=== PATIENT | female | born 1980 | race Caucasian/White ===

== ENCOUNTER 2017-04-30 20:16 | Inpatient (IN) | payer MEDICAID ==
[2017-04-30] MEDS ORDERED: Water For Irrigation,Sterile 1,000 ML Container IRR PRN (20:51)
[2017-04-30] MEDS ORDERED: Nalbuphine 10 MG/1 ML Vial IVPUSH PRN (20:51)
[2017-04-30] MEDS ORDERED: Methylergonovine 0.2 MG/1 ML Amp IM PRN (20:51)
[2017-04-30] MEDS ORDERED: Butorphanol 1 MG/ML SDV IVPUSH PRN (20:51)
[2017-04-30] MEDS ORDERED: Sodium Chloride 0.9% 2.5 ML Syringe FLUSH PRN (20:51)
[2017-04-30] MEDS ORDERED: Lidocaine 1% 50 ML MDV INJECT PRN (20:51)
[2017-04-30] MEDS ORDERED: Sodium Chloride 0.9% 10 ML Syringe FLUSH PRN (20:51)
[2017-04-30] MEDS ORDERED: Carboprost Tromethamine 250 MCG/1 ML Amp IM PRN (20:51)
[2017-04-30] MEDS ORDERED: Misoprostol 200 MCG Tab PO PRN (20:51)
[2017-04-30] MEDS ORDERED: Oxytocin/0.9 % Sodium Chloride 30 UNIT/500 ML BAG IV SCH (21:00)
[2017-04-30] MEDS ORDERED: Lactated Ringers 1,000 ML IV SCH (21:00)
[2017-04-30] MEDS ORDERED: Ampicillin 2 GM in Sodium Chloride 0.9% 100 ML IV ONE (21:00)
[2017-04-30] MEDS ORDERED: fentaNYL 100 MCG/2 ML SDV ONE (22:37)
--- NOTE | 2017-04-30 23:23 | PCM.PREANE ---
Preanesthetic Assessment - Procedure Proposed Procedure: Intrathecal analgesia, fentanly/bupivicaine - Anesthesia/Transfusion/Family Hx Anesthesia History: Prior Anesthesia Without Reaction Other Type of Anesthesia Reaction Comment: General and spinal Family History of Anesthesia Reaction: No Transfusion History: No Prior Transfusion(s) (Acceptable candidate for proposed procedure. Risks, benefits, complications, success rate discussed.) - Physical Assessment Height: 1.8 m Weight: 138.799 kg - Lab Values: Laboratory Last Values WBC 11.67 K/uL (4.0-11.0) H 04/30/17 21:18 RBC 4.15 M/uL (4.30-5.90) L 04/30/17 21:18 Hgb 12.4 g/dL (12.0-16.0) 04/30/17 21:18 Hct 36.7 % (36.0-46.0) 04/30/17 21:18 MCV 88.4 fL (80.0-98.0) 04/30/17 21:18 MCH 29.9 pg (27.0-32.0) 04/30/17 21:18 MCHC 33.8 g/dL (31.0-37.0) 04/30/17 21:18 RDW Std Deviation 48.6 fl (28.0-62.0) 04/30/17 21:18 RDW Coeff of Charan 15 % (11.0-15.0) 04/30/17 21:18 Plt Count 221 K/uL (150-400) 04/30/17 21:18 MPV 9.70 fL (7.40-12.00) 04/30/17 21:18 Add Manual Diff YES 04/30/17 21:18 Neutrophils % (Manual) 79 % (48.0-80.0) 04/30/17 21:18 Band Neutrophils % 2 % 04/30/17 21:18 Lymphocytes % (Manual) 13 % (16.0-40.0) L 04/30/17 21:18 Monocytes % (Manual) 4 % (0.0-15.0) 04/30/17 21:18 Eosinophils % (Manual) 2 % (0.0-7.0) 04/30/17 21:18 Nucleated RBC % 0.0 /100WBC 04/30/17 21:18 Absolute Seg Neuts 9.2 (1.4-5.7) H 04/30/17 21:18 Band Neutrophils # 0.2 04/30/17 21:18 Lymphocytes # (Manual) 1.5 (0.6-2.4) 04/30/17 21:18 Monocytes # (Manual) 0.5 (0.0-0.8) 04/30/17 21:18 Eosinophils # (Manual) 0.2 (0.0-0.7) 04/30/17 21:18 Nucleated RBCs # 0 K/uL 04/30/17 21:18 Urine Color YELLOW 04/30/17 20:30 Urine Appearance CLEAR 04/30/17 20:30 Urine pH 6.0 (5.0-8.0) 04/30/17 20:30 Ur Specific [place] >= 1.030 (1.001-1.035) 04/30/17 20:30 Urine Protein 30 mg/dL (NEGATIVE) 04/30/17 20:30 Urine Glucose (UA) NEGATIVE mg/dL (NEGATIVE) 04/30/17 20:30 Urine Ketones NEGATIVE mg/dL (NEGATIVE) 04/30/17 20:30 Urine Occult Blood LARGE (NEGATIVE) H 04/30/17 20:30 Urine Nitrite NEGATIVE (NEGATIVE) 04/30/17 20:30 Urine Bilirubin NEGATIVE (NEGATIVE) 04/30/17 20:30 Urine Urobilinogen 0.2 EU/dL (<2.0) 04/30/17 20:30 Ur Leukocyte Esterase NEGATIVE (NEGATIVE) 04/30/17 20:30 Membrane Rupture NEGATIVE 04/30/17 20:30 Urine Opiates Screen NEGATIVE (NEGATIVE) 04/30/17 20:30 Ur Oxycodone Screen NEGATIVE (NEGATIVE) 04/30/17 20:30 Urine Methadone Screen NEGATIVE (NEGATIVE) 04/30/17 20:30 Ur Barbiturates Screen NEGATIVE (NEGATIVE) 04/30/17 20:30 Ur Phencyclidine Scrn NEGATIVE (NEGATIVE) 04/30/17 20:30 Ur Amphetamine Screen POSITIVE (NEGATIVE) 04/30/17 20:30 U Methamphetamines Scrn POSITIVE (NEGATIVE) 04/30/17 20:30 U Benzodiazepines Scrn NEGATIVE (NEGATIVE) 04/30/17 20:30 U Cocaine Metab Screen NEGATIVE (NEGATIVE) 04/30/17 20:30 U Marijuana (THC) Screen POSITIVE (NEGATIVE) 04/30/17 20:30 Blood Type O POSITIVE 04/30/17 21:18 Antibody Screen NEGATIVE 04/30/17 21:18 - Allergies Allergies/Adverse Reactions: Allergies Allergy/AdvReac Type Severity Reaction Status Date / Time No Known Allergies Allergy Verified 02/14/14 12:42 PreAnesthesia Questionnaire - Past Health History Medical/Surgical History: Denies Medical/Surgical History HEENT History: Reports: Other (See Below) Other HEENT History: allergies 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: - Infectious Disease History Infectious Disease History: Reports: Chicken Pox - Past Surgical History HEENT Surgical History: Reports: Oral Surgery - SUBSTANCE USE Smoking Status *Q: Current Every Day Smoker Tobacco Use Within Last Twelve Months: Cigarettes Second Hand Smoke Exposure: Yes Recreational Drug Use History: No - HOME MEDS Home Medications: Home Meds Acetaminophen [Tylenol Extra Strength] 1,000 mg PO Q4H PRN #30 tab 02/15/14 [Rx] Benzocaine/Menthol [Dermoplast Pain Relief 20%-0.5% [place]] 78 gm TOP ASDIRECTED PRN #1 canister 02/15/14 [Rx] Docusate Sodium [Colace] 100 mg PO BID PRN #30 cap 02/15/14 [Rx] Ibuprofen [Motrin] 400 mg PO Q4H PRN #30 tablet 02/15/14 [Rx] Witch Mariela [Tucks] 1 pad TOP ASDIRECTED PRN #1 pad 02/15/14 [Rx] - CURRENT (IN HOUSE) MEDS Current Meds: Current Medications Butorphanol Tartrate (Stadol) 1 mg IVPUSH Q1H PRN PRN Reason: Pain Carboprost Tromethamine (Hemabate Ds) 250 mcg IM ASDIRECTED PRN PRN Reason: Post Hemorrhage Lactated Ringer's (Ringers, Lactated) 1,000 mls @ 150 mls/hr IV ASDIRECTED [facility] Last Admin: 04/30/17 21:05 Dose: 999 mls/hr Oxytocin/Sodium Chloride (Oxytocin 30 Unit/500 Ml-Ns) 30 unit in 500 mls @ 500 mls/hr IV TITRATE [facility] Lidocaine HCl (Xylocaine 1%) 50 ml INJECT .ONCE PRN PRN Reason: Laceration repair Methylergonovine Maleate (Methergine) 0.2 mg IM ASDIRECTED PRN PRN Reason: Post Hemorrhage Misoprostol (Cytotec) 200 mcg PO .ONCE PRN PRN Reason: Post Hemorrhage Nalbuphine HCl (Nubain) 10 mg IVPUSH Q1H PRN PRN Reason: Pain (severe 7-10) Sodium Chloride (Saline Flush) 10 ml FLUSH ASDIRECTED PRN PRN Reason: Keep Vein Open Sodium Chloride (Saline Flush) 2.5 ml FLUSH ASDIRECTED PRN PRN Reason: Keep Vein Open Sterile Water (Sterile Water For Irrigation) 1,000 ml IRR ASDIRECTED PRN PRN Reason: delivery Discontinued Medications Fentanyl (Sublimaze) Confirm Administered Dose 100 mcg .ROUTE .STK-MED ONE Stop: 04/30/17 22:38 Ampicillin Sodium 2 gm/ Sodium (Chloride) 100 mls @ 200 mls/hr IV ONETIME ONE Stop: 04/30/17 21:29 Last Admin: 04/30/17 21:16 Dose: 200 mls/hr - Pre-Procedure Checklist Attending Provider Aware: Yes Chart Reviewed: Yes Consent Signed: Yes Labs Reviewed: Hematocrit, Hemoglobin, Platelet VS/FHR Reviewed: Yes Pt an Appropriate Candidate for the Planned Anesthesia: Yes Alternatives and Risks of Anesthesia Discussed w Pt/Guardian: Yes Pre-Procedure Checklist Comment: Equipment available, procedure discussed, fluid bolus given. - Procedure Procedure Start Date: 04/30/17 Procedure Start Time: 22:[address]: Reports: Blood Pressure, Heart Rate, SPO2 Functional IV: Yes Bolus Infused (fluid type and amount): 1000 cc LR Safety Measures: Reports: Patient Identified, Procedure Verified, Site Verified , Procedure Time Out Patient Position: Reports: Sitting Prep: Reports: Betadine x3 Regional Placement Level: Reports: L3-4 Needle: Reports: Pencan 25g (5") Approach: Reports: Midline Parasthesia: Reports: None Fluid Obtained: Reports: Cerebrospinal Fluid Barbotage: No Medication(s): Fentanyl 20 mcg/Marcaine 4 mg to 2 cc with csf VS and FHR Monitored in Unit Post Placement: Yes Procedure End Date: 04/30/17 Procedure End Time: 22:55 Procedure Comment: Tolerated well. Pain well controlled post.
[2017-05-01] MEDS ORDERED: Oxytocin 10 Units/1 ML SDV IM ONE (00:25)
[2017-05-01] MEDS ORDERED: Oxytocin 10 Units/1 ML SDV ONE (00:28)
[2017-05-01] MEDS ORDERED: Lanolin 100% Cream 7 GM Tube TOP PRN (00:31)
[2017-05-01] MEDS ORDERED: Bisacodyl 10 MG Supp RECTAL PRN (00:31)
[2017-05-01] MEDS ORDERED: Acetaminophen 500 MG Tab PO PRN ×2 (00:31)
[2017-05-01] MEDS ORDERED: Witch Hazel Medicated Pads 40/Jar TOP PRN (00:31)
[2017-05-01] MEDS ORDERED: Ibuprofen 800 MG Tab PO PRN (00:31)
[2017-05-01] MEDS ORDERED: Ibuprofen 400 MG Tab PO PRN (00:31)
[2017-05-01] MEDS ORDERED: Benzocaine/Menthol 20%-0.5% Spray 78 GM Cannister TOP PRN (00:31)
[2017-05-01] MEDS ORDERED: Docusate Sodium 100 MG Cap PO PRN (00:31)
--- NOTE | 2017-05-01 00:49 | HP ---
DATE OF : 1980 PRIMARY CARE PHYSICIAN: None PCP CHIEF COMPLAINT: Contractions. HISTORY OF PRESENT ILLNESS: Tyesha is a 36-year-old, G3, P2, at approximately 41 weeks gestational age by LMP, who presents with regular contractions, intense in nature. Denies vaginal bleeding. Denies leakage of fluid. She has received no care. She notes good movement. PAST MEDICAL HISTORY: Substance abuse. PAST SURGICAL HISTORY: Denies any surgery. ALLERGIES: No known drug allergies. 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 Had a spontaneous vaginal delivery of 7-pound 9-ounce male infant in full term in 1999. Had a spontaneous vaginal delivery of 8-pound 12-ounce infant at 41 weeks in 2013. SOCIAL HISTORY: She is . She is a smoker. She drinks alcohol socially. Urine drug screen is positive for methamphetamine, amphetamine, and marijuana. FAMILY HISTORY: Mother with bleeding disorder, primary biliary cirrhosis. Father with coronary artery disease. Siblings alive and well. REVIEW OF SYSTEMS: Denies headaches, visual changes. Denies chest pain and shortness of breath. Denies nausea and vomiting. Denies dysuria, urgency, and frequency. Denies diarrhea. Denies abnormal vaginal discharge. PHYSICAL EXAMINATION: VITAL SIGNS: Blood pressure 125/90, pulse is 73. CARDIAC: Regular rate and rhythm. PULMONARY: Clear to auscultation bilaterally. ABDOMEN: Gravid, nontender, and obese. BACK: No CVA tenderness. EXTREMITIES: Trace pedal edema. Contractions every 2-3 minutes. Cervix 7-8cm, 90% effaced, +2 station. heart tones 150s with variability. LABORATORY DATA: Ultrasound reveals a fetus weighing 4413 g, cephalic presentation. Fundal placenta grade 3. Normal amniotic fluid volume. Estimated AUA of 37 weeks 5 days. Group beta strep is pending. CBC reveals normal hemoglobin and platelets. UA reveals large blood. UDS is positive for methamphetamine, amphetamine, and marijuana. Remainder of labs pending. ASSESSMENT: 1. 41-week intrauterine . 2. No care. 3. Positive urine drug screen. 4. Gipbv-dfp-ahzqymssfqf-age fetus. 5. Group B beta strep unknown. 6. Active labor. PLAN: The patient is admitted. Labs as above as well as usual routine initial OB labs. The patient has been IV hydrated. She is receiving ampicillin prophylaxis for group beta strep unknown. The patient is requesting regional anesthesia. Anesthesia has been consulted. They will attempt to do intrathecal. Expectant vaginal delivery. We will be planning a Social Service consult. 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 GOLD / PAOLA /[id number] MTDD
--- NOTE | 2017-05-01 01:31 | OR ---
SURGEON: Maxine Jean M.D. DATE OF PROCEDURE: 05/01/2017 PREOPERATIVE DIAGNOSES: 1. 41-week intrauterine . 2. Active labor. 3. No care. 4. Group beta Strep unknown. 5. Positive urine drug screen. 6. Meconium stained fluid 7.LGA fetus POSTOPERATIVE DIAGNOSES: 1. 41-week intrauterine . 2. Active labor. 3. No care. 4. Group beta Strep unknown. 5. Positive urine drug screen. 6. Meconium stained fluid 7. LGA fetus PROCEDURE: 1. Spontaneous vaginal delivery. 2. First-degree midline laceration repaired. ESTIMATED BLOOD LOSS: 350 mL. ANESTHESIA: Intrathecal. FINDINGS: Viable female, score 7 at 1 minute, 8 at 5 minutes. Weight of 4420 g. Spontaneous delivery, intact placenta, 3-vessel cord. DISPOSITION: Mom in LDRP and infant in nursery. PROCEDURE IN DETAIL: Tyesha is a 36-year-old, G3, P2-0-0-2, at approximately 41 weeks gestational age by LMP, who presented this evening in active labor with no care. On initial examination, the patient was found to be 7 cm, 100% effaced, -2 station. She was admitted. Routine labs were drawn as well as the full OB panel and urine drug screen which did reveal amphetamine, methamphetamine, and marijuana. The patient is group beta Strep unknown. Group B strep is collected and she is initiated on ampicillin prophylaxis. With IV hydration, the patient was requesting regional anesthesia and underwent an intrathecal successfully. heart tones were in the 150s with variability. After being more comfortable, the patient had amniotomy performed. Meconium-stained fluid was noted. At that time, she was found to be roughly 7-8 cm, 90% effaced, and -2 station. The patient progressed over the next 2 hours to complete, 100% effaced, and +1 station. She was found to be OP. Head was gently rotated to FRANCES position. She began pushing efforts, pushed readily to a +3 station. Ultrasound had been performed at the time of admission, and it did reveal cephalic presentation with no evidence of previa, estimated weight of 4450 g, estimated gestational age of 37 weeks 5 days. The patient continued to push and delivered 's head atraumatically spontaneously, followed by anterior shoulder, posterior shoulder, and the remainder of the body. The 's oropharynx and nares were bulb suctioned. DeLee suction was also performed. Cord clamped x2 and cut. Infant was handed off to attending physician, Dr. Urbina. Cord arterial, cord venous, cord blood sampling were obtained. Light pressure was applied. Vigorous fundal uterine massage was then applied while 30 units of Pitocin was delivered in 500 mL of IV fluid. Upon inspection of the cervix, vaginal sidewalls, and perineum, there was found to be a first-degree midline laceration repaired using 2-0 Vicryl. Uterus remained firm. Sponge count and needle counts were correct. The patient remained in LDRP and the infant to nursery. GOLD GUEVARA /[id number] MTDD
--- NOTE | 2017-05-01 07:17 | PCM.PNPP ---
- General Info Date of Service: 05/01/17 Functional Status: Reports: Pain Controlled, Tolerating Diet, Ambulating, Urinating - Review of Systems General: Denies: Fever, Weakness Pulmonary: Denies: Shortness of Breath Cardiovascular: Denies: Chest Pain, Palpitations, Lightheadedness Gastrointestinal: Denies: Nausea, Vomiting Genitourinary: Denies: Flank Pain Neurological: Reports: No Symptoms - General Info Date of Service: 05/01/17 - Patient Data Vital Signs - Most Recent: Last Vital Signs Temp 36.5 C 05/01/17 04:00 Pulse 99 05/01/17 04:00 Resp 18 05/01/17 04:00 BP 119/76 05/01/17 04:00 Pulse Ox 96 05/01/17 04:00 Weight - Most Recent: 138.799 kg Lab Results - Last 24 Hours: Laboratory Results - last 24 hr 04/30/17 04/30/17 04/30/17 Range/Units 20:30 20:30 20:30 WBC (4.0-11.0) K/uL RBC (4.30-5.90) M/uL Hgb (12.0-16.0) g/dL Hct (36.0-46.0) % MCV (80.0-98.0) fL MCH (27.0-32.0) pg MCHC (31.0-37.0) g/dL RDW Std Deviation (28.0-62.0) fl RDW Coeff of Charan (11.0-15.0) % Plt Count (150-400) K/uL MPV (7.40-12.00) fL Add Manual Diff Neutrophils % (Manual) (48.0-80.0) % Band Neutrophils % % Lymphocytes % (Manual) (16.0-40.0) % Monocytes % (Manual) (0.0-15.0) % Eosinophils % (Manual) (0.0-7.0) % Nucleated RBC % /100WBC Absolute Seg Neuts (1.4-5.7) Band Neutrophils # Lymphocytes # (Manual) (0.6-2.4) Monocytes # (Manual) (0.0-0.8) Eosinophils # (Manual) (0.0-0.7) Nucleated RBCs # K/uL Urine Color YELLOW Urine Appearance CLEAR Urine pH 6.0 (5.0-8.0) Ur Specific [place] >= 1.030 (1.001-1.035) Urine Protein 30 (NEGATIVE) mg/dL Urine Glucose (UA) NEGATIVE (NEGATIVE) mg/dL Urine Ketones NEGATIVE (NEGATIVE) mg/dL Urine Occult Blood LARGE H (NEGATIVE) Urine Nitrite NEGATIVE (NEGATIVE) Urine Bilirubin NEGATIVE (NEGATIVE) Urine Urobilinogen 0.2 (<2.0) EU/dL Ur Leukocyte Esterase NEGATIVE (NEGATIVE) Membrane Rupture NEGATIVE Urine Opiates Screen NEGATIVE (NEGATIVE) Ur Oxycodone Screen NEGATIVE (NEGATIVE) Urine Methadone Screen NEGATIVE (NEGATIVE) Ur Barbiturates Screen NEGATIVE (NEGATIVE) Ur Phencyclidine Scrn NEGATIVE (NEGATIVE) Ur Amphetamine Screen POSITIVE (NEGATIVE) U Methamphetamines Scrn POSITIVE (NEGATIVE) U Benzodiazepines Scrn NEGATIVE (NEGATIVE) U Cocaine Metab Screen NEGATIVE (NEGATIVE) U Marijuana (THC) Screen POSITIVE (NEGATIVE) Blood Type Antibody Screen 04/30/17 04/30/17 Range/Units 21:18 21:18 WBC 11.67 H (4.0-11.0) K/uL RBC 4.15 L (4.30-5.90) M/uL Hgb 12.4 (12.0-16.0) g/dL Hct 36.7 (36.0-46.0) % MCV 88.4 (80.0-98.0) fL MCH 29.9 (27.0-32.0) pg MCHC 33.8 (31.0-37.0) g/dL RDW Std Deviation 48.6 (28.0-62.0) fl RDW Coeff of Charan 15 (11.0-15.0) % Plt Count 221 (150-400) K/uL MPV 9.70 (7.40-12.00) fL Add Manual Diff YES Neutrophils % (Manual) 79 (48.0-80.0) % Band Neutrophils % 2 % Lymphocytes % (Manual) 13 L (16.0-40.0) % Monocytes % (Manual) 4 (0.0-15.0) % Eosinophils % (Manual) 2 (0.0-7.0) % Nucleated RBC % 0.0 /100WBC Absolute Seg Neuts 9.2 H (1.4-5.7) Band Neutrophils # 0.2 Lymphocytes # (Manual) 1.5 (0.6-2.4) Monocytes # (Manual) 0.5 (0.0-0.8) Eosinophils # (Manual) 0.2 (0.0-0.7) Nucleated RBCs # 0 K/uL Urine Color Urine Appearance Urine pH (5.0-8.0) Ur Specific [place] (1.001-1.035) Urine Protein (NEGATIVE) mg/dL Urine Glucose (UA) (NEGATIVE) mg/dL Urine Ketones (NEGATIVE) mg/dL Urine Occult Blood (NEGATIVE) Urine Nitrite (NEGATIVE) Urine Bilirubin (NEGATIVE) Urine Urobilinogen (<2.0) EU/dL Ur Leukocyte Esterase (NEGATIVE) Membrane Rupture Urine Opiates Screen (NEGATIVE) Ur Oxycodone Screen (NEGATIVE) Urine Methadone Screen (NEGATIVE) Ur Barbiturates Screen (NEGATIVE) Ur Phencyclidine Scrn (NEGATIVE) Ur Amphetamine Screen (NEGATIVE) U Methamphetamines Scrn (NEGATIVE) U Benzodiazepines Scrn (NEGATIVE) U Cocaine Metab Screen (NEGATIVE) U Marijuana (THC) Screen (NEGATIVE) Blood Type O POSITIVE Antibody Screen NEGATIVE Med Orders - Current: Current Medications Acetaminophen (Tylenol Extra Strength) 500 mg PO Q4H PRN PRN Reason: Pain Acetaminophen (Tylenol Extra Strength) 1,000 mg PO Q4H PRN PRN Reason: Pain Benzocaine/Menthol (Dermoplast Pain Relief 20%-0.5% [place]) 78 gm TOP ASDIRECTED PRN PRN Reason: Perineal Comfort Measure Last Admin: 05/01/17 03:58 Dose: 1 spray Bisacodyl (Dulcolax) 10 mg RECTAL .ONCE PRN PRN Reason: Constipation Carboprost Tromethamine (Hemabate Ds) 250 mcg IM ASDIRECTED PRN PRN Reason: Post Hemorrhage Docusate Sodium (Colace) 100 mg PO BID PRN PRN Reason: Constipation Emollient Ointment (Lansinoh Hpa) 0 gm TOP ASDIRECTED PRN PRN Reason: Sore Nipples Lactated Ringer's (Ringers, Lactated) 1,000 mls @ 150 mls/hr IV ASDIRECTED KRISTIN Last Admin: 04/30/17 21:05 Dose: 999 mls/hr Oxytocin/Sodium Chloride (Oxytocin 30 Unit/500 Ml-Ns) 30 unit in 500 mls @ 500 mls/hr IV TITRATE [facility] Ibuprofen (Motrin) 400 mg PO Q4H PRN PRN Reason: Pain Ibuprofen (Motrin) 800 mg PO Q6H PRN PRN Reason: Pain Methylergonovine Maleate (Methergine) 0.2 mg IM ASDIRECTED PRN PRN Reason: Post Hemorrhage Sodium Chloride (Saline Flush) 10 ml FLUSH ASDIRECTED PRN PRN Reason: Keep Vein Open Sodium Chloride (Saline Flush) 2.5 ml FLUSH ASDIRECTED PRN PRN Reason: Keep Vein Open Witch Mariela (Tucks) 1 pad TOP ASDIRECTED PRN PRN Reason: comfort care Discontinued Medications Butorphanol Tartrate (Stadol) 1 mg IVPUSH Q1H PRN PRN Reason: Pain Fentanyl (Sublimaze) Confirm Administered Dose 100 mcg .ROUTE .STK-MED ONE Stop: 04/30/17 22:38 Ampicillin Sodium 2 gm/ Sodium (Chloride) 100 mls @ 200 mls/hr IV ONETIME ONE Stop: 04/30/17 21:29 Last Admin: 04/30/17 21:16 Dose: 200 mls/hr Lidocaine HCl (Xylocaine 1%) 50 ml INJECT .ONCE PRN PRN Reason: Laceration repair Misoprostol (Cytotec) 200 mcg PO .ONCE PRN PRN Reason: Post Hemorrhage Nalbuphine HCl (Nubain) 10 mg IVPUSH Q1H PRN PRN Reason: Pain (severe 7-10) Oxytocin (Pitocin) Confirm Administered Dose 10 unit .ROUTE .STK-MED ONE Stop: 05/01/17 00:29 Oxytocin (Pitocin) 10 unit IM ONETIME ONE Stop: 05/01/17 00:26 Last Admin: 05/01/17 00:31 Dose: 10 unit Sterile Water (Sterile Water For Irrigation) 1,000 ml IRR ASDIRECTED PRN PRN Reason: delivery - Interaction Support Person: - Recovery Exam Fundal Tone: Firm Fundal Level: At Umbilicus Fundal Placement: Midline Lochia Amount: Small Lochia Color: Rubra/Red Bladder Status: Voiding Urinary Elimination: Voided - Exam General: Alert, Oriented Lungs: Normal Respiratory Effort Cardiovascular: Regular Rate, Regular Rhythm GI/Abdominal Exam: Soft Extremities: Pedal Edema Skin: Dry, Intact Psy/Mental Status: Alert - Problem List & Annotations (1) Vaginal delivery SNOMED Code(s): 482315559 Code(s): O80 - ENCOUNTER FOR FULL-TERM UNCOMPLICATED DELIVERY Status: Acute Current Visit: No - Problem List Review Problem List Initiated/Reviewed/Updated: Yes - My Orders Last 24 Hours: My Active Orders 04/30/17 20:19 Patient Status [ADT] Routine Non Stress Test [RC] PER UNIT ROUTINE Up ad Rita [RC] ASDIRECTED Vaginal Exam [RC] Click to Edit Vital Signs [RC] PER UNIT ROUTINE Resuscitation Status Routine 04/30/17 20:51 OB Ltd 1 or More Fetus [US] Urgent Carboprost Tromethamine [Hemabate DS] 250 mcg IM ASDIRECTED PRN Methylergonovine [Methergine] 0.2 mg IM ASDIRECTED PRN Sodium Chloride 0.9% [Saline Flush] 10 ml FLUSH ASDIRECTED PRN Sodium Chloride 0.9% [Saline Flush] 2.5 ml FLUSH ASDIRECTED PRN OB Panel [OM.PC] Urgent 04/30/17 20:52 Patient Status [ADT] Routine Heart Tones [RC] CONTINUOUS Non Stress Test [RC] PER UNIT ROUTINE May Shower [RC] ASDIRECTED Notify Provider [RC] PRN Up ad Rita [RC] ASDIRECTED Vaginal Exam [RC] PRN Vital Signs [RC] PER UNIT ROUTINE Peripheral IV Insertion Adult [OM.PC] Routine 04/30/17 21:00 Lactated Ringers [Ringers, Lactated] 1,000 ml IV ASDIRECTED Oxytocin/0.9 % Sodium Chloride [Oxytocin 30 Unit/500 ML-NS] 30 unit in 500 ml IV TITRATE 04/30/17 21:10 CULTURE GROUP B STREP [RM] Routine 04/30/17 21:18 HEPATITIS B SURFACE ANTIGEN [REF] Routine RPR [REF] Routine RUBELLA ANTIBODY, IGG [REF] Routine 05/01/17 00:31 Acetaminophen [Tylenol Extra Strength] 1,000 mg PO Q4H PRN Acetaminophen [Tylenol Extra Strength] 500 mg PO Q4H PRN Benzocaine/Menthol [Dermoplast Pain Relief 20%-0.5% [place]] 78 gm TOP ASDIRECTED PRN Bisacodyl [Dulcolax] 10 mg RECTAL .ONCE PRN Docusate Sodium [Colace] 100 mg PO BID PRN Ibuprofen [Motrin] 400 mg PO Q4H PRN Ibuprofen [Motrin] 800 mg PO Q6H PRN Lanolin [Lansinoh HPA] See Dose Instructions TOP ASDIRECTED PRN Lela [place] [Tucks] 1 pad TOP ASDIRECTED PRN 05/01/17 00:32 Patient Status [ADT] Routine May Shower [RC] ASDIRECTED Up ad Rita [RC] ASDIRECTED Vital Signs [RC] PER UNIT ROUTINE Assess Lochia [WOMSER] Per Unit Routine Assess Uterine Involution [WOMSER] Per Unit Routine Ice Therapy [OM.PC] Per Unit Routine Perineal Care [OM.PC] Per Unit Routine Peripheral IV Discontinue [OM.PC] Routine Sitz Bath [OM.PC] Per Unit Routine 05/01/17 06:47 Consult to Industrial Psychologist [CONS] Routine 05/01/17 15:00 HEMOGLOBIN/HEMATOCRIT,HH [HEME] Routine 05/01/17 Breakfast Regular Diet [DIET] - Assessment Assessment:: Status post No care + UDS for methamphetamine, amphetamine, marijuana - Plan Plan:: Continue PP cares, explained to patient about social work supervisor being contacted given positive UDS. She voices her understanding.
--- NOTE | 2017-05-01 09:33 | PCM48HPAN ---
Post Anesthesia Note - EVALUATION WITHIN 48HRS OF ANESTHETIC Vital Signs in Normal Range: Yes Patient Participated in Evaluation: Yes Respiratory Function Stable: Yes Airway Patent: Yes Cardiovascular Function Stable: Yes Hydration Status Stable: Yes Pain Control Satisfactory: Yes Nausea and Vomiting Control Satisfactory: Yes Mental Status Recovered: Yes - COMMENTS/OBSERVATIONS Free Text/Narrative:: Did well, no problems noted post.
--- NOTE | 2017-05-02 08:04 | PCM.PNPP ---
- General Info Date of Service: 05/02/17 Subjective Update: Patient denies pain. Ambulating, voiding, lochia is minimal. She has visited with social security assessor. She has agreed to evaluation/treatment. She would like to be discharged with rooming in. Functional Status: Reports: Pain Controlled, Tolerating Diet, Ambulating, Urinating - Review of Systems General: Denies: Weakness Pulmonary: Denies: Shortness of Breath, Wheezing Cardiovascular: Denies: Palpitations, Lightheadedness Gastrointestinal: Denies: Abdominal Pain Genitourinary: Denies: Flank Pain Psychiatric: Reports: Agitation (mild, but present) - General Info Date of Service: 05/02/17 - Patient Data Vital Signs - Most Recent: Last Vital Signs Temp 36.9 C 05/02/17 04:20 Pulse 73 05/02/17 04:20 Resp 16 05/02/17 04:20 BP 120/64 05/02/17 04:20 Pulse Ox 97 05/02/17 04:20 Weight - Most Recent: 138.799 kg Lab Results - Last 24 Hours: Laboratory Results - last 24 hr 05/01/17 Range/Units 14:52 Hgb 11.2 L (12.0-16.0) g/dL Hct 33.3 L (36.0-46.0) % Med Orders - Current: Current Medications Acetaminophen (Tylenol Extra Strength) 500 mg PO Q4H PRN PRN Reason: Pain Acetaminophen (Tylenol Extra Strength) 1,000 mg PO Q4H PRN PRN Reason: Pain Benzocaine/Menthol (Dermoplast Pain Relief 20%-0.5% [place]) 78 gm TOP ASDIRECTED PRN PRN Reason: Perineal Comfort Measure Last Admin: 05/01/17 03:58 Dose: 1 spray Bisacodyl (Dulcolax) 10 mg RECTAL .ONCE PRN PRN Reason: Constipation Carboprost Tromethamine (Hemabate Ds) 250 mcg IM ASDIRECTED PRN PRN Reason: Post Hemorrhage Docusate Sodium (Colace) 100 mg PO BID PRN PRN Reason: Constipation Emollient Ointment (Lansinoh Hpa) 0 gm TOP ASDIRECTED PRN PRN Reason: Sore Nipples Lactated Ringer's (Ringers, Lactated) 1,000 mls @ 150 mls/hr IV ASDIRECTED KRISTIN Last Admin: 04/30/17 21:05 Dose: 999 mls/hr Oxytocin/Sodium Chloride (Oxytocin 30 Unit/500 Ml-Ns) 30 unit in 500 mls @ 500 mls/hr IV TITRATE KRISTIN Ibuprofen (Motrin) 400 mg PO Q4H PRN PRN Reason: Pain Ibuprofen (Motrin) 800 mg PO Q6H PRN PRN Reason: Pain Methylergonovine Maleate (Methergine) 0.2 mg IM ASDIRECTED PRN PRN Reason: Post Hemorrhage Sodium Chloride (Saline Flush) 10 ml FLUSH ASDIRECTED PRN PRN Reason: Keep Vein Open Sodium Chloride (Saline Flush) 2.5 ml FLUSH ASDIRECTED PRN PRN Reason: Keep Vein Open Witch Mariela (Tucks) 1 pad TOP ASDIRECTED PRN PRN Reason: comfort care Discontinued Medications Butorphanol Tartrate (Stadol) 1 mg IVPUSH Q1H PRN PRN Reason: Pain Fentanyl (Sublimaze) Confirm Administered Dose 100 mcg .ROUTE .STK-MED ONE Stop: 04/30/17 22:38 Last Admin: 05/01/17 09:19 Dose: Not Given Ampicillin Sodium 2 gm/ Sodium (Chloride) 100 mls @ 200 mls/hr IV ONETIME ONE Stop: 04/30/17 21:29 Last Admin: 04/30/17 21:16 Dose: 200 mls/hr Lidocaine HCl (Xylocaine 1%) 50 ml INJECT .ONCE PRN PRN Reason: Laceration repair Misoprostol (Cytotec) 200 mcg PO .ONCE PRN PRN Reason: Post Hemorrhage Nalbuphine HCl (Nubain) 10 mg IVPUSH Q1H PRN PRN Reason: Pain (severe 7-10) Oxytocin (Pitocin) Confirm Administered Dose 10 unit .ROUTE .STK-MED ONE Stop: 05/01/17 00:29 Last Admin: 05/01/17 09:20 Dose: Not Given Oxytocin (Pitocin) 10 unit IM ONETIME ONE Stop: 05/01/17 00:26 Last Admin: 05/01/17 00:31 Dose: 10 unit Sterile Water (Sterile Water For Irrigation) 1,000 ml IRR ASDIRECTED PRN PRN Reason: delivery - Interaction Support Person: - Recovery Exam Fundal Tone: Firm Fundal Level: At Umbilicus Fundal Placement: Midline Lochia Amount: Scant Lochia Color: Rubra/Red Perineum Description: Intact, Minimal Bruising/Swelling Other Perinuem Description: 1st degree laceration Bladder Status: Voiding Urinary Elimination: Voided - Exam Lungs: Normal Respiratory Effort Cardiovascular: Regular Rate, Regular Rhythm GI/Abdominal Exam: Soft, Non-Tender Extremities: Pedal Edema (trace) Skin: Warm, Dry Psy/Mental Status: Alert, Agitated - Problem List & Annotations (1) Vaginal delivery SNOMED Code(s): 456900718 Code(s): O80 - ENCOUNTER FOR FULL-TERM UNCOMPLICATED DELIVERY Status: Acute Current Visit: No - Problem List Review Problem List Initiated/Reviewed/Updated: Yes - My Orders Last 24 Hours: My Active Orders 05/02/17 08:00 Ready for Discharge [RC] PER UNIT ROUTINE - Assessment Assessment:: Status post No care + UDS for methamphetamine, amphetamine, marijuana - Plan Plan:: animal services officer has been in to evaluate patient. Will allow discharge with rooming in. Infant will remain admitted. Discharge instructions reviewed. Follow up at [facility] 6 weeks. Follow up with social security assessor as instructed.
[2017-05-02 11:45] VITALS: BP 132/61
--- NOTE | 2017-05-02 18:40 | US ---
EXAM DATE: 05/01/17 PATIENT'S AGE: 36 Patient: TENZIN PEÑA Facility: [place], [place] Site . Site : [id number] Study: US OB Pelvis [id number]/30/2017 10:08:15 PM Ordering Physician: Miranda Goodman Final Report: HISTORY: No care. Patient in labor. Check estimated weight and position. FINDINGS: Multiple grayscale static images from a limited OB ultrasound demonstrates a single viable intrauterine is in cephalic presentation. The placenta is fundal and appears mature grade 3 without evidence of previa. The amniotic fluid index is 21.1 cm. Cardiac rate is 170 beats per minute. biometry demonstrates a BPD 8.9 cm, 36 weeks 0 days. Head circumference 31.8 cm, 35 weeks 6 days. All circumference 40.7 cm, of range for dates. Femur length is 8.0 cm, 41 weeks 1 day. The estimated gestational age by ultrasound is 37 weeks 5 days with estimated date of delivery of 16 May 2017. The estimated weight is 4,413 +/- 644 g or 9 pounds 12 ounces. IMPRESSION: 1. Single viable intrauterine fetus in cephalic presentation. 2. Amniotic fluid index 21.1 cm. 3. Mature fundal placenta without previa. 4. Estimated gestational age is 37 weeks 5 days. Estimated weight is 4, 413 g or 9 pounds 12 ounces. Dictated by Elisa Prince MD @ 04/30/2017 10:23:45 PM Dictated by: Elisa Prince MD @ 04/30/2017 22:24:12 (Electronic Signature) Report Signed by Proxy. [email or web address]
== END 2017-05-02 11:30 | disposition home or self-care (01) | DRG 775 ==
LOC: MW.OBCHECK 20:16 → MW.OB 20:19 → MW.OBCHECK 20:52 → MW.OB 20:52 → OBSVTOIN 05-01 00:01
PROVIDERS: ADMIT Obstetrics & Gynecology; ATTEND Obstetrics & Gynecology
PROC: 10E0XZZ Delivery of Products of Conception, External Approach (ICD-10-PCS; principal; 2017-05-01)
PROC: 0HQ9XZZ Repair Perineum Skin, External Approach (ICD-10-PCS; 2017-05-01)
PROC: 10907ZC Drainage of Amniotic Fluid, Therapeutic from Products of Conception, Via Natural or Artificial Opening (ICD-10-PCS; 2017-05-01)
DX: O99.324 Drug use complicating childbirth (principal); F15.90 Other stimulant use, unspecified, uncomplicated; O70.0 First degree perineal laceration during delivery; O36.63X0 Maternal care for excessive fetal growth, third trimester, not applicable or unspecified; O77.0 Labor and delivery complicated by meconium in amniotic fluid; O09.33 Supervision of pregnancy with insufficient antenatal care, third trimester; Z3A.41 41 weeks gestation of pregnancy; Z37.0 Single live birth
CPT/HCPCS: 01967; 36415; 59025; 59409; 76815; 76815-26; 80305; 81003; 84112; 85014; 85018; 85025; 86592; 86762; 86850; 86900; 86901; 87081; 87340; A9270-GY; J0290; J2590; J7030; J7120

== ENCOUNTER 2022-01-19 07:32 | Emergency (ER) | payer MEDICAID ==
[2022-01-19 07:47] VITALS: BP 143/75; PULSE 77
== END 2022-01-19 08:10 | disposition home or self-care (01) ==
LOC: MW.ED 07:32
DX: K04.7 Periapical abscess without sinus (principal); Z79.899 Other long term (current) drug therapy
CPT/HCPCS: 99283

== ENCOUNTER 2022-01-19 12:38 | Emergency (ER) | payer MEDICAID ==
[2022-01-19] MEDS ORDERED: Sodium Chloride 0.9% 2.5 ML Syringe FLUSH PRN (17:39)
[2022-01-19] MEDS ORDERED: Sodium Chloride 0.9% 10 ML Syringe FLUSH PRN (17:39)
[2022-01-19 17:49] VITALS: BP 143/88; PULSE 81
[2022-01-19] MEDS ORDERED: metroNIDAZOLE/Normal Saline 500 MG in Premix Bag 1 BAG IV ONE (18:00)
[2022-01-19] MEDS ORDERED: Levofloxacin/Dextrose 5%-Water 500 MG in Premix Bag 1 BAG IV ONE (18:00)
[2022-01-19 18:24] LABS: CARBON DIOXIDE,CO2 22.9 mmol/L (21.0-32.0); POTASSIUM,K 3.9 mmol/L (3.5-5.1)
[2022-01-19] MEDS ORDERED: Iopamidol 755 MG/ML 500 ML Multipack Bottle IVPUSH STA (18:44)
[2022-01-19] MEDS ORDERED: Sodium Chloride 0.9% 1,000 ML IV ONE (20:13)
[2022-01-19] MEDS ORDERED: Morphine 4 MG/ML VIAL IVPUSH ONE (20:14)
== END 2022-01-19 20:46 ==
LOC: MW.ED 12:38
DX: K12.2 Cellulitis and abscess of mouth (principal); Z79.899 Other long term (current) drug therapy; K04.7 Periapical abscess without sinus
CPT/HCPCS: 36415; 70491; 80053; 83605; 85025; 87040; 96365; 96375; 99283; 99285; J1956; J2270; J3490; Q9967; 99284

== ENCOUNTER 2022-03-02 14:21 | Emergency (ER) | payer MEDICAID ==
[2022-03-02 16:53] LABS: BLOOD UREA NITROGEN,BUN 13 mg/dL (7.0-18.0); CARBON DIOXIDE,CO2 24.7 mmol/L (21.0-32.0); CHLORIDE,CL 104 mmol/L (98-107); GLUCOSE RANDOM 96 mg/dL (74-106); POTASSIUM,K 4.1 mmol/L (3.5-5.1); SODIUM,NA 139 mmol/L (136-145)
[2022-03-02 16:59] LABS: ESTIMATED GFR 82 mL/min (>60)
[2022-03-02] MEDS ORDERED: Iopamidol 755 MG/ML 500 ML Multipack Bottle IVPUSH STA (18:09)
[2022-03-02 19:01] VITALS: BP 145/65; PULSE 65
== END 2022-03-02 20:47 | disposition home or self-care (01) ==
LOC: MW.ED 14:21
DX: K08.89 Other specified disorders of teeth and supporting structures (principal); Z79.899 Other long term (current) drug therapy
CPT/HCPCS: 36415; 70491; 80053; 85025; 99283; Q9967